=== PATIENT | male | born 1955 | race Caucasian/White ===

== ENCOUNTER 2019-10-03 00:46 | Emergency (ER) | payer SELFPAY ==
[~2019-10-03] VITALS: Ht 177.8 cm; Wt 88.5 kg
[2019-10-03] MEDS ORDERED: FISH OIL 1,0001 EAC2 NG (01:25)
[2019-10-03] MEDS ORDERED: ONDANSETRON ODT8 MG PO (02:06)
[2019-10-03] MEDS ORDERED: PERCOCET 5-3251 EACH PO (02:06)
[2019-10-03] MEDS ORDERED: FLOMAX0.4 MG PO (02:06)
== END 2019-10-03 02:19 | disposition home or self-care (01) ==
LOC: ED 00:46
DX: N13.2 Hydronephrosis with renal and ureteral calculous obstruction (principal); I10 Essential (primary) hypertension
CPT/HCPCS: 74176; 80053; 81001; 85025; 96374; 96375; 99284-25; J1170; J1885; J2405

== ENCOUNTER 2022-01-21 08:28 | Day surgery (SDC) | payer MEDICARE ==
[~2022-01-21] VITALS: Ht 208.3 cm; Wt 85.5 kg
[~2022-01-21 08:28] MED LIST: FISH OIL 1,0001 EAC2 NG; FLOMAX0.4 MG PO; METFORMIN HCL500 MG PO; ONDANSETRON ODT8 MG PO; PERCOCET 5-3251 EACH PO
--- NOTE | 2022-01-21 10:35 | NUR ---
01/21/22 1035 Jaycob Yeboah RESPONDS TO TAP AND VOICE. REORIENTED TO TIME AND SITUATION. FALLS ASLEEP EASILY.
--- NOTE | 2022-01-22 07:46 | OR ---
[facility] [address] [place], [place] [address] Signed DATE OF OPERATION: 01/21/2022 SURGEON: Neville Garcia MD PREOPERATIVE DIAGNOSIS: Screening. POSTOPERATIVE DIAGNOSES: 1. Minimal sigmoid diverticulosis. 2. 5 mm polyp at 30 cm. 3. 5 mm polyp at 40 cm. 4. 4 mm polyp at 70 cm. 5. 4 mm polyp at 95 cm. PROCEDURE: Colonoscopy biopsy. ESTIMATED BLOOD LOSS: None. 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 His came with him today. She has not had a colonoscopy either. No family history of colon cancer or polyps. No lower GI complaints. He said it has been over 10 years since he has been to a doctor. He has now been documented to have significantly high blood pressure in my office here and at his primary care provider's office as well. He really needs to address this with his primary care provider. I did go over that with him today. In the office, I had given him a pamphlet on colonoscopy. He understands the nature of the test. There is risk including, but not limited to gas bloating, crampy abdominal pain, bleeding, perforation requiring surgery, and missed diagnosis. We also discussed the need for IV conscious sedation. He had expressed understanding and wished to proceed. PROCEDURE NOTE: Abraham was taken into our endoscopy suite and placed in the left lateral decubitus position. He was given a total of 3 mg of Versed and 100 mcg of fentanyl to cover the case. A digital rectal exam was performed and this was unremarkable. He had good sphincter tone. The adult colonoscope had been introduced and advanced all the way around into the cecum under direct visualization of the camera without difficulty. We actually got to the cecum with just 2 mg of Versed and 100 mcg of fentanyl. We had 1 Electronically Signed By: NEVILLE GARCIA MD 01/22/22 0746 PATIENT NAME: ABRAHAM JUDD OPERATIVE REPORT DATE OF : 57 REPORT #: [id number] PHYSICIAN: NEVILLE GARCIA MD PCP: NORBERTO JORGENSEN MD REPORT IS CONFIDENTIAL AND NOT TO BE RELEASED WITHOUT AUTHORIZATION [facility] [address] [place] [address] Signed additional mg of Versed as the scope was withdrawn as we removed the above mentioned polyps. We also noticed a few diverticula in the sigmoid colon. They were small in size, few in number, and scattered about. The scope had been retroflexed in the rectum and there was no additional pathology noted above the anal canal. After this, the gas was suctioned out and the colonoscope removed. Abraham tolerated the procedure quite well. RECOMMENDATIONS: I will see Abraham back in my office in 7 to 14 days to review his results. He needs to address his high blood pressure with his primary care provider. Neville Garcia MD ALB/MODL /[id number] cc: MD Neville Milner MD Copies: NORBERTO JORGENSEN DMD, ANDREW L MD ~ Electronically Signed By: NEVILLE GARCIA MD 01/22/22 0746 PATIENT NAME: ABRAHAM JUDD OPERATIVE REPORT DATE OF : 57 REPORT #: [id number] PHYSICIAN: NEVILLE GARCIA MD PCP: NORBERTO JORGENSEN MD REPORT IS CONFIDENTIAL AND NOT TO BE RELEASED WITHOUT AUTHORIZATION
--- NOTE | 2022-01-24 12:22 | PATH ---
[facility] [place] [facility] [address] [place], [place] [address] Signed SPECIMEN(S): A SIGMOID AT 30 CM SPECIMEN(S): B DISTAL DESCENDING/LEFT AT 40 CM SPECIMEN(S): C PROXIMAL DESCENDING/LEFT AT 70 CM SPECIMEN(S): D COLON POLYP SPECIMEN SOURCE: A. SIGMOID AT 30 CM B. DISTAL DESCENDING/LEFT AT 40 CM C. PROXIMAL DESCENDING/LEFT AT 70 CM D. COLON POLYP CLINICAL HISTORY: Screening FINAL PATHOLOGIC DIAGNOSIS: A. Colon, 30 cm, polypectomy: - Hyperplastic polyp. B. Colon, distal descending/left at 40 cm, polypectomy: - Tubular adenoma. C. Colon, proximal descending/left at 70 cm, polypectomy: - Tubular adenoma. D. Colon, polypectomy: - Tubular adenoma. BRP:emh:[id number] MICROSCOPIC EXAMINATION: Histologic sections of all submitted blocks are examined by light microscopy. These findings, together with the gross examination, support the pathologic diagnosis. GROSS DESCRIPTION: Four specimens are received in four containers labeled with "TR". A. The specimen, labeled "TR, 1," and designated on the requisition "sigmoid at 30 cm," is received in formalin and consists of one fragment of pink-diaz tissue (0.3 cm in greatest dimension). The specimen is submitted entirely in cassette A1. B. The specimen, labeled "TR, 2," and designated on the requisition "descending/left, distal, 40 cm," is received in formalin and consists of one fragment of pink-diaz tissue (0.3 cm in greatest dimension). The specimen is submitted entirely in cassette B1. C. The specimen, labeled "TR, 3," and designated on the requisition "proximal PATIENT NAME: TOBI JUDD PATHOLOGY DATE OF : 57 REPORT #: [id number] PHYSICIAN: KITTY PATHOLOGY PCP: NORBERTO JORGENSEN MD REPORT IS CONFIDENTIAL AND NOT TO BE RELEASED WITHOUT AUTHORIZATION [facility] [place] [facility] [address] [place], [place] [address] Signed descending/left, 70 cm," is received in formalin and consists of one fragment of pink-idaz tissue (0.2 cm in greatest dimension). The specimen is submitted entirely in cassette C1. D. The specimen, labeled "TR, 4," and designated on the requisition "colon polypectomy," is received in formalin and consists of one fragment of pink-diaz tissue (0.2 cm in greatest dimension). The specimen is submitted entirely in cassette D1. AC (under the direct supervision of a pathologist) The Gross Description was prepared using a voice recognition system. The report was reviewed for accuracy; however, sound-alike word errors, addition and/or deletions may occur. If there is any question about this report, please contact Client Services. PERFORMING LABORATORY: The technical component was performed by [facility], [address] [place] [id number] (CLIA# [id number]). [facility], [address] [place] [address] (CLIA# [id number]). Diagnostician: Taran Marquez MD Pathologist Electronically Signed 01/24/2022 Copies: ~ PATIENT NAME: TOBI JUDD ALAN PATHOLOGY DATE OF : 57 REPORT #: [id number] PHYSICIAN: [facility] PATHOLOG[facility] PCP: NORBERTO JORGENSEN MD REPORT IS CONFIDENTIAL AND NOT TO BE RELEASED WITHOUT AUTHORIZATION
== END 2022-01-21 11:08 | disposition home or self-care (01) ==
LOC: OPS 08:28 → DS 08:36 → OPS 09:00
PROVIDERS: ATTEND Colon & Rectal Surgery
PROC: 0DBE8ZX Excision of Large Intestine, Via Natural or Artificial Opening Endoscopic, Diagnostic (ICD-10-PCS; 2022-01-21)
PROC: 0DBM8ZX Excision of Descending Colon, Via Natural or Artificial Opening Endoscopic, Diagnostic (ICD-10-PCS; principal; 2022-01-21 09:45)
DX: Z12.11 Encounter for screening for malignant neoplasm of colon (principal); D12.4 Benign neoplasm of descending colon; D12.6 Benign neoplasm of colon, unspecified; K63.5 Polyp of colon; K57.30 Diverticulosis of large intestine without perforation or abscess without bleeding; E11.9 Type 2 diabetes mellitus without complications; I10 Essential (primary) hypertension; Z79.84 Long term (current) use of oral hypoglycemic drugs
CPT/HCPCS: 88305; 99153; G0500; J2250; J3010; J7121

== ENCOUNTER 2024-05-29 00:14 | Emergency (ER) | payer MEDICARE ==
[~2024-05-29] VITALS: Ht 177.8 cm; Wt 88.3 kg
[2024-05-29] MEDS ORDERED: ATORVASTATIN CA10 MG PO (00:42)
[2024-05-29] MEDS ORDERED: LOSARTAN-HCTZ1 EACH PO (00:42)
[2024-05-29 00:57] LABS: BASOPHILS 0.5 % (0-2); EOSINOPHILS 2.5 % (0-6); HEMOGLOBIN 13.6 g/dL (12.0-18.0); LYMPHOCYTES 16.3 % (24-44); MCH 29.5 (27-36); MCHC 34.8 g/dl (30-36); MCV 84.8 fl (81-99); MONOCYTES 7.1 % (0-12); NEUTROPHILS 73.6 % (39-80); PLATELET COUNT 190 K/uL (140-440); RDW 13.6 (10.5-15.0)
[2024-05-29 01:05] LABS: INR 1.08 (0.80-1.30); PROTIME 13.3 Sec (11.2-14.2)
[2024-05-29 01:31] LABS: ALBUMIN 3.8 g/dL (3.4-5.0); ALBUMIN/GLOBULIN RATIO 1.06 (1.1-2.4); ALCOHOL, MEDICAL <3 ng/dL (<3); ALKALINE PHOSPHATASE 78 U/L (46-116); ALT (SGPT) 22 U/L (14-59); ANION GAP 16.2 (7-21); AST (SGOT) 12 U/L (15-37); BILIRUBIN, TOTAL 0.4 ng/dL (0.2-1.0); BUN/CREATININE RATIO 17.85 (6.0-28.6); CALCIUM 8.9 mg/dL (8.5-10.1); CARBON DIOXIDE 25 mmol/L (21-32); CHLORIDE 106 mmol/L (98-107); GLOMERULAR FILTRATION RATE,EST 55 mL/min (>60); POTASSIUM 3.2 mmol/L (3.5-5.1); PROTEIN, TOTAL 7.4 g/dL (6.4-8.2); TSH, 3RD GENERATION 6.697 uIU/mL (0.358-3.740); UREA NITROGEN 25 mg/dL (7-18)
[2024-05-29 01:38] LABS: BILIRUBIN, URINE NEGATIVE (negative); BLOOD/HGB, URINE TRACE-L (Negative); KETONE, URINE NEGATIVE (Negative); LEUK ESTERASE, URINE NEGATIVE (negative); NITRITE, URINE NEGATIVE (negative); PH, URINE 5.5 (5-7)
[2024-05-29 01:52] LABS: BACTERIA, URINE RARE /hpf (negative); CASTS, URINE NONE SEEN \\lpf; COLLECTION TYPE, URINE CLEAN CATCH; CRYSTALS, URINE NONE SEEN (0-1+); EPITHELIAL CELLS, URINE SQUAMOUS 1+ /lpf (0-1+); REFLEX CULTURE, URINE No (No)
[2024-05-29 01:53] LABS: AMPHETAMINES, URINE NEGATIVE (NEGATIVE); BARBITURATES, URINE NEGATIVE (NEGATIVE); BENZODIAZEPINE, URINE NEGATIVE (NEGATIVE); BUPRENORPHINE, URINE NEGATIVE (NEGATIVE); CANNABINOID, URINE NEGATIVE (NEGATIVE); COCAINE, URINE NEGATIVE (NEGATIVE); ECSTASY, URINE NEGATIVE (NEGATIVE); FENTANYL, URINE NEGATIVE (NEGATIVE); METHADONE, URINE NEGATIVE (NEGATIVE); OPIATES, URINE NEGATIVE (NEGATIVE); OXYCODONE, URINE NEGATIVE (NEGATIVE); PHENCYCLIDINE, URINE NEGATIVE (NEGATIVE)
[2024-05-29] MEDS ORDERED: LACTATED RINGER'S 1,000 ML IV ONE (02:15)
[2024-05-29 03:30] VITALS: BP 138/84
--- NOTE | 2024-05-29 20:21 | EKG ---
[facility] [address] [facility] [place] [address] Signed Normal sinus rhythm with sinus arrhythmia Left axis deviation Abnormal ECG No previous ECGs available Confirmed by Avril Day MD ([id number]) on 05/29/2024 8:21:26 PM Electronically Signed By: AVRIL DAY MD 05/29/242020 PATIENT NAME: TOBI JUDD Electrocardiogram DATE OF : 57 PHYSICIAN: AVRIL DAY MD REPORT #: [id number] REPORT IS CONFIDENTIAL AND NOT TO BE RELEASED WITHOUT AUTHORIZATION
== END 2024-05-29 03:30 | disposition home or self-care (01) ==
LOC: ED 00:14
PROVIDERS: Internal Medicine
DX: G45.4 Transient global amnesia (principal); S00.03XA Contusion of scalp, initial encounter; E11.9 Type 2 diabetes mellitus without complications; I10 Essential (primary) hypertension; Z79.84 Long term (current) use of oral hypoglycemic drugs; Z79.899 Other long term (current) drug therapy; X58.XXXA Exposure to other specified factors, initial encounter
CPT/HCPCS: 36415; 70450; 71045; 80053; 80307; 81001; 84443; 85025; 85610; 93005; 93010; 96360; 99285-25; G0480; J7121

== ENCOUNTER 2025-03-01 05:55 | Day surgery (SDC) | payer MEDICARE, OTHER ==
[~2025-03-01] VITALS: Ht 177.8 cm; Wt 83.0 kg
[~2025-03-01 05:55] MED LIST changes: +ACTOS15 MG PO; +ATORVASTATIN CA10 MG PO; +LACTATED RINGER'S 1,000 ML IV SCH; +LOSARTAN-HCTZ1 EACH PO
[2025-03-01 06:11] VITALS: BP 144/79
[2025-03-01] MEDS ORDERED: IBLOOD GLUCOSE TEST STRIP 1 EA TEST VI PRN (07:00)
[2025-03-01] MEDS ORDERED: LIDOCAINE HCL 1% 5 ML SDV INJ ONE (07:00)
[2025-03-01] MEDS ORDERED: LIDOCAINE HCL 2% 5 ML SDV ONE (07:25)
--- NOTE | 2025-03-01 07:30 | NUR ---
PT NOT AVAILABLE FOR VISIT. PROVIDED PRAYER.
--- NOTE | 2025-03-01 08:16 | NUR ---
03/01/25 0816 Bekah Larios 0810-PATIENT ARRIVED TO PACU ON 6L MASK RR EVEN PATIENT NONAROUSABLE LAYING LEFT LATERAL ABDOMEN SOFT. IVF INFUSING. SINUS ARRYTHMIA HR UPPER 40'S.
[2025-03-01 09:04] VITALS: BP 140/90
--- NOTE | 2025-03-03 11:35 | PATH ---
[facility] [address] [place], [place] [address] Signed SPECIMEN(S): A ILEOCECAL VALVE POLYP SPECIMEN SOURCE: A. ILEOCECAL VALVE POLYP CLINICAL HISTORY: Colon cancer screening, history of polyps/adenomas, ileocecal valve polyp, diverticulosis FINAL PATHOLOGIC DIAGNOSIS: Ileocecal valve, polypectomy: - Sessile serrated polyp. DWS:cm MICROSCOPIC EXAMINATION: Histologic sections of all submitted blocks are examined by light microscopy. These findings, together with the gross examination, support the pathologic diagnosis. GROSS DESCRIPTION: The specimen, labeled and designated "Tapia, ileocecal valve polyp," is received in formalin and consists of three diaz soft tissue fragments, ranging from 0.1-0.7 cm. Entirely submitted in (A1). VB (under the direct supervision of a pathologist) The Gross Description was prepared using a voice recognition system. The report was reviewed for accuracy; however, sound-alike word errors, addition and/or deletions may occur. If there is any question about this report, please contact Client Services. PERFORMING LABORATORY: Technical component was performed by [employer], [address] [place] [address] (CLIA# [id number]). Professional interpretation was performed by [facility], [address] [place] [id number] (CLIA#: [id number]). Diagnostician: Nestor Grimm MD Pathologist Electronically Signed 03/03/2025 Copies: PATIENT NAME: TOBI TAPIA PATHOLOGY DATE OF : 57 REPORT #: [id number] PHYSICIAN: KITTY PATHOLOGY PCP: NORBERTO JORGENSEN MD REPORT IS CONFIDENTIAL AND NOT TO BE RELEASED WITHOUT AUTHORIZATION [address] [address] Signed ~ PATIENT NAME: TOBI TAPIA PATHOLOGY DATE OF : 57 REPORT #: [id number] PHYSICIAN: KITTY PATHOLOGY PCP: NORBERTO JORGENSEN MD REPORT IS CONFIDENTIAL AND NOT TO BE RELEASED WITHOUT AUTHORIZATION
== END 2025-03-01 09:10 | disposition home or self-care (01) ==
LOC: DS 05:55
PROVIDERS: ATTEND Surgery
PROC: 0DBB8ZX Excision of Ileum, Via Natural or Artificial Opening Endoscopic, Diagnostic (ICD-10-PCS; principal; 2025-03-01 07:30)
DX: Z12.11 Encounter for screening for malignant neoplasm of colon (principal); D12.0 Benign neoplasm of cecum; K57.30 Diverticulosis of large intestine without perforation or abscess without bleeding; Z86.0101 Personal history of adenomatous and serrated colon polyps; I10 Essential (primary) hypertension; E11.9 Type 2 diabetes mellitus without complications; Z79.84 Long term (current) use of oral hypoglycemic drugs; Z79.899 Other long term (current) drug therapy
CPT/HCPCS: 00811; J2003; J2704; J7121

== ENCOUNTER 2025-04-20 10:25 | Day surgery (SDC) | payer MEDICARE, OTHER ==
[~2025-04-20] VITALS: Ht 177.8 cm; Wt 85.0 kg
[~2025-04-20 10:25] MED LIST changes: +IBLOOD GLUCOSE TEST STRIP 1 EA TEST VI PRN; +LIDOCAINE HCL 1% 5 ML SDV INJ ONE
[2025-04-20 10:44] VITALS: BP 136/78
[2025-04-20] MEDS ORDERED: LIDOCAINE HCL 2% 5 ML SDV ONE (12:22)
--- NOTE | 2025-04-20 13:34 | NUR ---
04/20/25 1334 Bekah Larios 1330-PATIENT ARRIVED TO PACU ON 6L MASK RR EVEN NONAROUSABLE LAYING LEFT LATERAL ABDOMEN SOFT. IVF INFUSING. SINUS ARRYTHMIA HR UPPER 40'S -50'S.
[2025-04-20 14:10] VITALS: BP 131/76
--- NOTE | 2025-04-21 10:00 | OR ---
[facility] [address] [place], [place] [address] Signed DATE OF OPERATION: 04/20/2025 SURGEON: Norberto Jordan DO PREOPERATIVE DIAGNOSIS: Cecal mass per endoscopy. POSTOPERATIVE DIAGNOSES: Cecal mass per endoscopy with diverticulosis and a cecal polyp at 120 cm. PROCEDURE PERFORMED: Colonoscopy with polypectomy. ANESTHESIA: IV sedation. ESTIMATED BLOOD LOSS: Minimal. DRAINS: None. COMPLICATIONS: None. DESCRIPTION OF PROCEDURE: The patient was brought to the GI lab, placed in supine position. After induction of IV sedation, the patient was then placed in left lateral position, padded to the satisfaction of anesthesia. The Olympus video colonoscope was then introduced into the rectum and while insufflating under direct visualization, the scope was advanced to the rectosigmoid, sigmoid colon, descending colon, transverse colon, ascending colon into the cecum. The colon was insufflated and inspection of mucosal surfaces carried out. A polyp was noted at 120 cm flat broad-based although it peaked well, medialized with cold biopsy forceps. Multiple biopsies were taken of the polyp. Polypectomy was continued, completed, and passed off the field for pathologic review. Satisfactory hemostasis was maintained. The ascending colon was essentially unremarkable other than transverse colon, essentially unremarkable. No intrinsic or extrinsic masses were noted. The scope was brought back into the descending colon. Some scattered diverticula were noted, but no evidence of diverticulitis was present. The scope was then placed in the sigmoid colon. No intrinsic or extrinsic masses. Some diverticula were noted in the Electronically Signed By: NORBERTO JORDAN DO 04/21/[address] [facility] PATIENT NAME: TOBI JUDD OPERATIVE REPORT DATE OF : 57 REPORT #: [id number] PHYSICIAN: NORBERTO JORDAN DO PCP: NORBERTO JORGENSEN MD REPORT IS CONFIDENTIAL AND NOT TO BE RELEASED WITHOUT AUTHORIZATION [address] [place], [place] [address] Signed sigmoid, rectosigmoid colon with no evidence of diverticulitis was appreciated. Otherwise unremarkable. Scope was withdrawn. The patient tolerated the procedure well and taken to recovery room in satisfactory condition. DO MANNIE Casey/GIRISH /[id number] Copies: ~ Electronically Signed By: NORBERTO JORDAN DO 04/21/25 1000 PATIENT NAME: TOBI JUDD OPERATIVE REPORT DATE OF : 57 REPORT #: [id number] PHYSICIAN: NORBERTO JORDAN DO PCP: NORBERTO JORGENSEN MD REPORT IS CONFIDENTIAL AND NOT TO BE RELEASED WITHOUT AUTHORIZATION
--- NOTE | 2025-04-25 09:48 | PATH ---
[facility] [address] [place], [place] [address] Signed SPECIMEN(S): A CECUM COLON POLYP SPECIMEN SOURCE: A. CECUM COLON POLYP CLINICAL HISTORY: Cecal mass FINAL PATHOLOGIC DIAGNOSIS: Cecal polyp - Mildly hyperplastic colonic mucosa, additional levels reveal no evidence of serrated polyp, adenomatous polyp, or malignancy. AMB MICROSCOPIC EXAMINATION: Histologic sections of all submitted blocks are examined by light microscopy. These findings, together with the gross examination, support the pathologic diagnosis. Histologic sections of all submitted blocks are examined by light microscopy. These findings, together with the gross examination, support the pathologic diagnosis. GROSS DESCRIPTION: The specimen, labeled and designated "analisa Tapia colon polyp," is received in formalin and consists of one diaz soft tissue fragment, 0.2 cm. Entirely submitted in (A1). VB (under the direct supervision of a pathologist) The Gross Description was prepared using a voice recognition system. The report was reviewed for accuracy; however, sound-alike word errors, addition and/or deletions may occur. If there is any question about this report, please contact Client Services. ADDITIONAL NOTES: Immunohistochemical and/or in situ hybridization studies if performed in this case included appropriate positive controls that reacted as expected. This test was developed and its performance characteristics determined by [facility]. It has not been cleared or approved by the U.S. Food and Drug Administration. The FDA has determined that such clearance or approval is not necessary. This test is used for clinical purposes. It should not be regarded as investigational or for research. [facility] is certified under the PATIENT NAME: TOBI TAPIA PATHOLOGY DATE OF : 57 REPORT #: [id number] PHYSICIAN: KITTY LEMA PCP: NORBERTO JORGENSEN MD REPORT IS CONFIDENTIAL AND NOT TO BE RELEASED WITHOUT AUTHORIZATION [facility] [address] [facility] [place] [address] Signed Clinical Laboratory Improvement Amendments of 1988 (CLIA) as qualified to perform high complexity clinical laboratory testing. PERFORMING LABORATORY: Technical component was performed by [facility], [address] [place] [address] (CLIA# [id number]). Professional interpretation was performed by [facility] [address] [place] [id number] Diagnostician: Yoko Laureano MD Pathologist Electronically Signed 04/25/2025 Copies: ~ PATIENT NAME: TOBI TAPIA PATHOLOGY DATE OF : 57 REPORT #: [id number] PHYSICIAN: KITTY LEMA PCP: NORBERTO JORGENSEN MD REPORT IS CONFIDENTIAL AND NOT TO BE RELEASED WITHOUT AUTHORIZATION
== END 2025-04-20 14:20 | disposition home or self-care (01) ==
LOC: DS 10:25 → OPS 10:25 → DS 11:50 → OPS 11:50
PROVIDERS: ATTEND Surgery
PROC: 0DBH8ZX Excision of Cecum, Via Natural or Artificial Opening Endoscopic, Diagnostic (ICD-10-PCS; principal; 2025-04-20 11:50)
DX: K63.5 Polyp of colon (principal); K57.30 Diverticulosis of large intestine without perforation or abscess without bleeding; I10 Essential (primary) hypertension; E11.9 Type 2 diabetes mellitus without complications; Z79.899 Other long term (current) drug therapy; Z79.84 Long term (current) use of oral hypoglycemic drugs
CPT/HCPCS: 00811; 88305; J2003; J2704; J7121